=== PATIENT | male | born 1970 | race Hispanic/Latino ===

== ENCOUNTER 2021-08-20 14:48 | Emergency (ER) | payer OTHER ==
[~2021-08-20] VITALS: Ht 162.6 cm; Wt 97.5 kg
[2021-08-20 15:17] LABS: APPEARANCE,URINE Clear (CLEAR); BILIRUBIN,URINE Negative (NEGATIVE); COLOR,URINE Dark Yellow (YELLOW); GLUCOSE, URINE (UA) Negative (NEGATIVE); KETONES,URINE 15 mg/dL (NEGATIVE); LEUKOCYTE ESTERASE ,URINE Trace (NEGATIVE); NITRATE,URINE Negative (NEGATIVE); OCCULT BLOOD,URINE Negative (NEGATIVE); PROTEIN,URINE POS 2+ mg/dL (NEGATIVE)
[2021-08-20 15:28] LABS: BACTERIA,URINE Few /HPF (None Seen); RBC,URINE 0-1 /HPF (0-1)
[2021-08-20 15:29] LABS: MUCUS,URINE Few LPF (None Seen); SQUAMOUS EPITHELIAL CELL,UR Few /HPF (0-2)
[2021-08-20 15:37] LABS: CREATININE 1.2 mg/dL (0.5-1.5); POTASSIUM 3.5 mmol/L (3.5-5.1)
[2021-08-20 15:40] LABS: ALBUMIN 3.9 g/dL (3.5-5.0); BILIRUBIN,TOTAL 0.5 mg/dL (0.2-1.0); TOTAL PROTEIN, SERUM 7.7 g/dL (6.0-8.3)
[2021-08-20 16:27] LABS: BASOPHILS % (AUTO) 0.2 % (0.0-5.0); LYMPHOCYTES % (AUTO) 9.1 % (21.0-51.0); MEAN CORPUSCULAR HEMOGLOBIN 28.4 pg (27.0-33.0); MEAN CORPUSCULAR HGB CONC 33.5 g/dL (32.0-36.0); MEAN CORPUSCULAR VOLUME 84.8 fL (79-99); MONOCYTES % (AUTO) 6.2 % (3.0-13.0); NEUTROPHILS % (AUTO) 84.1 % (40.0-77.0); PLATELET COUNT (AUTO) 166 K/uL (130-400); RED BLOOD CELL COUNT(AUTO) 5.32 MIL/uL (4.50-6.20); RED CELL DISTRIBUTION WIDTH 12.6 % (11.0-15.5)
[2021-08-20] MEDS ORDERED: CEPHALEXIN 500 MG CAPSULE PO ONE (16:30)
[2021-08-20] MEDS ORDERED: KETOROLAC 15MG/ML VIAL (15MG/ML) IM ONE (16:30)
[2021-08-20] MEDS ORDERED: ACETAMINOPHEN 500 MG TABLET ONE (16:46)
[2021-08-20] MEDS ORDERED: IBUP-2070 PO (17:08)
[2021-08-20] MEDS ORDERED: CEPH500B PO (17:08)
[2021-08-20 17:11] VITALS: BP 85/91
== END 2021-08-20 17:15 | disposition home or self-care (01) ==
LOC: EDH 14:48
DX: N39.0 Urinary tract infection, site not specified (principal); R50.9 Fever, unspecified; R19.7 Diarrhea, unspecified; R51.9 Headache, unspecified; I10 Essential (primary) hypertension; F41.9 Anxiety disorder, unspecified; Z90.49 Acquired absence of other specified parts of digestive tract; Z20.822 Contact with and (suspected) exposure to COVID-19
CPT/HCPCS: 36415; 80053; 81001; 85025; 87635; 87804 ×2; 96372; 99283; C9803; J1885

== ENCOUNTER 2021-09-12 17:10 | Emergency (ER) | payer OTHER ==
[~2021-09-12] VITALS: Ht 162.6 cm; Wt 97.5 kg
[~2021-09-12 17:10] MED LIST: CEPH500B PO; IBUP-2070 PO
[2021-09-12] MEDS ORDERED: IBUPROFEN 600 MG TABLET PO ONE (17:30)
[2021-09-12 18:46] VITALS: BP 130/82
== END 2021-09-12 18:55 | disposition home or self-care (01) ==
LOC: EDH 17:10
DX: S20.219A Contusion of unspecified front wall of thorax, initial encounter (principal); S39.012A Strain of muscle, fascia and tendon of lower back, initial encounter; I10 Essential (primary) hypertension; F41.9 Anxiety disorder, unspecified; Z90.49 Acquired absence of other specified parts of digestive tract; Z98.890 Other specified postprocedural states; Z79.899 Other long term (current) drug therapy; V43.52XA Car driver injured in collision with other type car in traffic accident, initial encounter; Y93.89 Activity, other specified; Y92.410 Unspecified street and highway as the place of occurrence of the external cause; Y99.8 Other external cause status
CPT/HCPCS: 71045; 72100

== ENCOUNTER 2023-11-02 12:49 | Emergency (ER) | payer OTHER ==
[~2023-11-02] VITALS: Ht 162.6 cm; Wt 95.3 kg
[2023-11-02 14:16] LABS: APPEARANCE,URINE CLEAR (CLEAR); BILIRUBIN,URINE NEGATIVE (NEGATIVE); COLOR,URINE DARK-YELLOW (YELLOW); GLUCOSE, URINE (UA) NEGATIVE (NEGATIVE); KETONES,URINE NEGATIVE (NEGATIVE); LEUKOCYTE ESTERASE ,URINE NEGATIVE Leu/uL (NEGATIVE); NITRATE,URINE 1+ (NEGATIVE); OCCULT BLOOD,URINE NEGATIVE (NEGATIVE); PH,URINE 5.5 (5.0-8.0); PROTEIN,URINE NEGATIVE (NEGATIVE); UROBILINOGEN,URINE 0.2 mg/dL (0.2-1.0)
[2023-11-02 14:22] LABS: ADD UA MICROSCOPIC YES
[2023-11-02 14:43] LABS: BACTERIA,URINE RARE /HPF (None Seen); MUCUS,URINE RARE LPF (None Seen); RBC,URINE 0-1 /HPF (0-1); WBC,URINE 0-1 /HPF (0-1)
[2023-11-02 15:20] LABS: BASOPHILS # (AUTO) 0.03 K/uL (0.00-0.20); BASOPHILS % (AUTO) 0.5 % (0.0-5.0); EOSINOPHILS # (AUTO) 0.09 K/uL (0.00-0.70); EOSINOPHILS % (AUTO) 1.4 % (0.0-8.0); HEMATOCRIT 43.2 % (42-54); IMMATURE GRANULOCYTE ABSOLUTE 0.02 K/uL (0-1); LYMPHOCYTES # (AUTO) 1.8 K/uL (1.0-4.8); LYMPHOCYTES % (AUTO) 27.9 % (21.0-51.0); MEAN CORPUSCULAR HGB CONC 34.3 g/dL (32.0-36.0); MEAN CORPUSCULAR VOLUME 87.4 fL (79-99); MONOCYTES # (AUTO) 0.5 K/uL (0.1-1.0); MONOCYTES % (AUTO) 7.5 % (3.0-13.0); NEUTROPHILS % (AUTO) 62.4 % (40.0-77.0); PLATELET COUNT (AUTO) 178 K/uL (130-400); RED BLOOD CELL COUNT(AUTO) 4.94 MIL/uL (4.50-6.20); RED CELL DISTRIBUTION WIDTH 13.2 % (11.0-15.5); WHITE BLOOD COUNT (AUTO) 6.4 K/uL (4.8-10.8)
[2023-11-02 15:34] LABS: POTASSIUM 3.8 mmol/L (3.5-5.1)
[2023-11-02 16:13] LABS: ALBUMIN 3.8 g/dL (3.5-5.0); BILIRUBIN,DIRECT 0.1 mg/dL (0.0-0.3); BILIRUBIN,TOTAL 0.4 mg/dL (0.2-1.0); TOTAL PROTEIN, SERUM 7.3 g/dL (6.0-8.3)
[2023-11-02] MEDS: METOCLOPRAMIDE 10 MG/2 ML VIAL IVP ONE (17:06)
[2023-11-02] MEDS: 0.9%NACL 1000ML 1,000 ML IV ONE (17:06)
[2023-11-02] MEDS: FAMOTIDINE 20MG VIAL IV ONE (17:06)
[2023-11-02] MEDS: KETOROLAC 30MG VIAL (30MG/ML) IVP ONE (17:06)
[2023-11-02] MEDS ORDERED: MELO-106 PO (17:56)
[2023-11-02] MEDS ORDERED: CYCL10TA16 PO (17:56)
[2023-11-02 18:14] VITALS: BP 124/77; PULSE 78; RESP 18; O2SAT 98
[2023-11-04] MEDS ORDERED: LISI10TA24 PO (17:45)
[2023-11-04] MEDS ORDERED: TAMS-1 PO (17:45)
[2023-11-04] MEDS ORDERED: PARO-37 PO (17:49)
== END 2023-11-02 18:31 | disposition home or self-care (01) ==
LOC: EDH 12:49
DX: G89.29 Other chronic pain (principal); M54.50 Low back pain, unspecified; R10.30 Lower abdominal pain, unspecified; I10 Essential (primary) hypertension; F41.9 Anxiety disorder, unspecified; Z90.49 Acquired absence of other specified parts of digestive tract; Z79.899 Other long term (current) drug therapy; Z98.890 Other specified postprocedural states
CPT/HCPCS: 99284; 96374; 96375; 96361; 80076; 80048; 83690; 85025; 87088; 81001; 36415; J3490; J7030; J1885; J2765

== ENCOUNTER → 2025-04-04 | Outpatient (CLI) | payer OTHER ==
[~2025-04-04] MED LIST changes: -CEPH500B PO; -IBUP-2070 PO; +LEVO750T68 PO; +LISI10TA24 PO; +METR375C2 PO; +PARO-37 PO; +TAMS-55 PO
--- NOTE | 2025-04-05 06:02 | HMCIMG ---
EXAM: CR Abdomen, 1 view. CLINICAL HISTORY: Pain. COMPARISON: None provided. FINDINGS: Nonobstructed nonspecific bowel gas pattern. No free air is evident. Tiny opacities are seen in bilateral renal region likely renal calculi should be ruled out. No aggressive appearing osseous lesion. IMPRESSION: Tiny opacities are seen in bilateral renal region likely renal calculi should be ruled out. /[place]
--- NOTE | 2025-04-05 06:06 | HMCIMG ---
EXAM: CR Abdomen, 1 view. CLINICAL HISTORY: Pain. COMPARISON: None provided. FINDINGS: Nonobstructed nonspecific bowel gas pattern. No free air is evident. No abnormal calcification. No aggressive appearing osseous lesion. IMPRESSION: 1. No acute process. /[place]
== END | disposition home or self-care (01) ==
LOC: RAH 10:33
PROVIDERS: ATTEND Urology
DX: N20.0 Calculus of kidney (principal)
CPT/HCPCS: 74018; 76100